=== PATIENT | female | born 1975 | race Caucasian/White ===

== ENCOUNTER 2017-03-13 17:37 | Emergency (ER) | payer MEDICAID, OTHER ==
[2017-03-13 17:37] VITALS: BMI 27.2
[2017-03-13 18:03] VITALS: BP 127/81; PULSE 58; RESP 16; TEMP 98.6; O2SAT 100
--- NOTE | 2017-03-13 19:00 | ED PDOC ---
HPI: Headache Time Seen by Provider: 03/13/17 18:08 Chief Complaint (Nursing): Headache Chief Complaint (Provider): Headache History Per: Patient History/Exam Limitations: no limitations Onset/Duration Of Symptoms: Days (x 3) Current Symptoms Are (Timing): Still Present Additional Complaint(s): Marisa is a 41 y/o female who presents to the ED complaining of gradual onset band-like headache for 3-4 days. Reports associated mild light sensitivity. She states Motrin does provide intermittent relief but headache returns. States she has had the same headache in the past, which usually resolves completely after sleeping or after Motrin. She has never had a headache last this long before. Denies fever, head injury, nausea, vomiting, neck pain or stiffness. PMD: Sundeep Winslow Past Medical History Reviewed: Historical Data, Nursing Documentation, Vital Signs Vital Signs: Last Vital Signs Temp 98.6 F 03/13/17 17:59 Pulse 58 L 03/13/17 17:59 Resp 16 03/13/17 17:59 BP 127/81 03/13/17 17:59 Pulse Ox 100 03/13/17 17:59 - Surgical History Surgical History: (x 1) - Family History Family History: States: Unknown Family Hx - Social History Current smoker - smoking cessation education provided: No Alcohol: None Drugs: Denies - Immunization History Hx Tetanus Toxoid Vaccination: No Hx Influenza Vaccination: No - Home Medications Home Medications: Ambulatory Orders Medication Instructions Recorded Metoclopramide [Reglan] 10 mg PO Q8 PRN #15 tab 03/13/17 Naproxen [Naprosyn] 500 mg PO BID PRN #14 tab 03/13/17 - Allergies Allergies/Adverse Reactions: Allergies Allergy/AdvReac Type Severity Reaction Status Date / Time No Known Allergies Allergy Verified 03/13/17 17:59 Review of Systems ROS Statement: Except As Marked, All Systems Reviewed And Found Negative Constitutional: Negative for: Fever, Other (head injury) Eyes: Positive for: Other (Mild light sensitivity) Gastrointestinal: Negative for: Nausea, Vomiting Musculoskeletal: Negative for: Neck Pain (or stiffness) Neurological: Positive for: Headache Physical Exam - Reviewed Nursing Documentation Reviewed: Yes Vital Signs Reviewed: Yes - Physical Exam Appears: Positive for: Non-toxic, No Acute Distress Head Exam: Positive for: ATRAUMATIC, NORMAL INSPECTION, NORMOCEPHALIC Skin: Positive for: Normal Color, Warm, Dry Eye Exam: Positive for: EOMI, Normal appearance, PERRL ENT: Positive for: Normal ENT Inspection Neck: Positive for: Normal, Painless ROM, Supple Cardiovascular/Chest: Positive for: Regular Rate, Rhythm. Negative for: Murmur Respiratory: Positive for: Normal Breath Sounds. Negative for: Respiratory Distress Gastrointestinal/Abdominal: Positive for: Normal Exam, Soft. Negative for: Tenderness Back: Positive for: Normal Inspection. Negative for: L CVA Tenderness, R CVA Tenderness Extremity: Positive for: Normal ROM. Negative for: Deformity Neurologic/Psych: Positive for: Alert, Oriented, Gait (steady) - Laboratory Results Urine POC: Negative - ECG O2 Sat by Pulse Oximetry: 100 (RA) Pulse Ox Interpretation: Normal - Progress Re-evaluation Time: 19:33 (Pt. reports complete relief of headache. Repeat neuro exam is non-focal.) Condition: Re-examined, Improved Medical Decision Making Medical Decision Making: Time: 18:42 Initial Plan: --Reglan 10 mg PO --Toradol 15 mg IM --Pending reevaluation and disposition Scribe Attestation: Documented by Love Wood, acting as a scribe for Manjit Jo PA-C Provider Scribe Attestation: All medical record entries made by the Scribe were at my direction and personally dictated by me. I have reviewed the chart and agree that the record accurately reflects my personal performance of the history, physical exam, medical decision making, and the department course for this patient. I have also personally directed, reviewed, and agree with the discharge instructions and disposition. Disposition - Clinical Impression Clinical Impression: Acute headache - Patient ED Disposition Is Patient to be Admitted: No - Disposition Referrals: Yamil Shoemaker [Outside] Disposition: Routine/Home Disposition Time: 19:34 Condition: STABLE Prescriptions: Metoclopramide [Reglan] 10 mg PO Q8 PRN #15 tab PRN Reason: nausea or headache Naproxen [Naprosyn] 500 mg PO BID PRN #14 tab PRN Reason: Pain Instructions: Acute Headache (ED) Forms: [facility] (Senegalese) Print Language: CHILEAN
== END 2017-03-13 19:45 | disposition home or self-care (01) ==
LOC: H.ER 17:37
DX: R51 Headache (principal)
CPT/HCPCS: 81025; 96372; 99284; J1885

== ENCOUNTER 2017-04-05 08:57 | Emergency (ER) | payer MEDICAID ==
[2017-04-05 08:58] VITALS: BMI 27.2
[2017-04-05 09:12] VITALS: BP 118/75; PULSE 63; RESP 18; TEMP 97.8; O2SAT 99
[2017-04-05 09:40] LABS: BASO % 1.2 % (0.0-2.0); EOS # 0.1 K/uL (0.0-0.7); EOS % 2.3 % (0.0-4.0); HEMATOCRIT 33.7 % (34.0-47.0); LYMPH # 1.5 K/uL (1.0-4.3); LYMPH % 35.2 % (20.0-40.0); MEAN CELL VOLUME 89.1 fl (81.0-99.0); MEAN CORPUSCULAR HEMOGLOBIN 28.7 pg (27.0-31.0); MEAN CORPUSCULAR HGB CONC 32.2 g/dL (33.0-37.0); MEAN PLATELET VOLUME 8.9 fl (7.2-11.7); MONO # 0.4 K/uL (0.0-0.8); MONO % 10.6 % (0.0-10.0); NEUT # 2.1 K/uL (1.8-7.0); NEUT % 50.7 % (50.0-75.0); RED CELL DISTRIBUTION WIDTH 13.7 % (11.5-14.5); WHITE BLOOD COUNT 4.2 K/uL (4.8-10.8)
[2017-04-05 09:51] LABS: BLOOD UREA NITROGEN 17 mg/dl (7-17); CALCIUM 9.5 mg/dL (8.4-10.2); CARBON DIOXIDE 28 mmol/L (22-30); CHLORIDE 104 mmol/L (98-107); GFR AFRICAN-AMERICAN > 60; GLUCOSE,RANDOM 84 mg/dL (65-105); POTASSIUM 4.3 MMOL/L (3.6-5.0); SODIUM 143 mmol/l (132-148); URIC ACID 3.4 mg/Dl (2.2-7.5)
--- NOTE | 2017-04-05 11:06 | CP.PCM.CON ---
History of Present Illness - History of Present Illness History of Present Illness: Podiatry Consult Note - Dr. Welch 41 year old female with unremarkable PMH seen in ED complaining of left great toe pain. Patient states the pain started approximately 2 days ago, and denies any acute trauma to the area. Patient states she spends long hours standing and walking for work. Patient denies any change in shoe gear or previous injury. Patient reports 8/10 pain to her left great toe and increased sensitivity to touch. Patient denies any treatment prior to arrival. Patient denies N/V/F/D/C/ SOB/calf pain. No other pedal complaints at this time. Review of Systems - Review of Systems All systems: reviewed and no additional remarkable complaints except (as per HPI ) Past Patient History - Past Social History Smoking Status: Never Smoked - PSYCHIATRIC Hx Substance Use: No - SURGICAL HISTORY Hx Section: Yes (x1) - ANESTHESIA Hx Anesthesia: No Meds Home Medications: Home Medication List Medication Instructions Recorded Confirmed Type Naproxen [Naprosyn] 500 mg PO BID PRN #14 tablet 04/05/17 Rx Allergies/Adverse Reactions: Allergies Allergy/AdvReac Type Severity Reaction Status Date / Time No Known Allergies Allergy Verified 03/13/17 17:59 Physical Exam - Constitutional Appears: Well, Non-toxic, No Acute Distress - Extremities Exam Additional comments: VASC: DP and PT pulses palpable 2/4 b/l. CFT <3 seconds to all digits x10. TG wnl. Mild nonpitting edema noted to L hallux. No increase in warmth noted to left hallux. NEURO: Gross sensation intact bilaterally; hyperesthesia to L hallux DERM: No open lesions noted. No separation of L hallucal nail plate noted. No erythema noted. ORTHO: Pain on palpation left hallux. Pain upon ROM left 1st MPJ. No POP 1st met head, 2nd digit, 1st webspace left foot. Muscle strength 5/5 for all plantarflexors, dorsiflexors, inverters, and everters b/l. - Neurological Exam Neurological exam: Alert, Oriented x3 - Psychiatric Exam Psychiatric exam: Normal Affect, Normal Mood Results - Vital Signs Recent Vital Signs: Last Vital Signs Temp 97.8 F 04/05/17 09:08 Pulse 63 04/05/17 09:08 Resp 18 04/05/17 09:08 BP 118/75 04/05/17 09:08 Pulse Ox 99 04/05/17 09:08 - Labs Result Diagrams: 04/05/17 09:35 04/05/17 09:35 Labs: Laboratory Results - last 24 hr 04/05/17 04/05/17 09:35 09:35 WBC 4.2 L RBC 3.79 L Hgb 10.9 L Hct 33.7 L MCV 89.1 MCH 28.7 MCHC 32.2 L RDW 13.7 Plt Count 238 MPV 8.9 Neut % (Auto) 50.7 Lymph % (Auto) 35.2 Teller % (Auto) 10.6 H Eos % (Auto) 2.3 Baso % (Auto) 1.2 Neut # 2.1 Lymph # 1.5 Teller # 0.4 Eos # 0.1 Baso # 0.0 Sodium 143 Potassium 4.3 Chloride 104 Carbon Dioxide 28 Anion Gap 15 BUN 17 Creatinine 0.7 Est GFR ( Amer) > 60 Est GFR (Non-Af Amer) > 60 Random Glucose 84 Uric Acid 3.4 Calcium 9.5 Assessment & Plan - Assessment and Plan (Free Text) Assessment: 41 year old female unremarkable PMH with painful left hallux likely 2/2 sprain Plan: Patient seen and evaluated in ED Discussed with attending Dr. Welch Chart, labs, vitals reviewed = afebrile, WBC decreased @ 4.2, uric acid wnl 3.4 Left foot XR reviewed: negative for acute fracture Surgical shoe dispensed. WBAT to LLE in surgical shoe to prevent 1st MPJ ROM Recommend NSAIDs Recommend RICE Stable from podiatry standpoint Patient is to follow up with Dr. Welch at [facility] podiatry clinic Thank you for this consult, please reconsult podiatry again as needed
--- NOTE | 2017-04-05 11:17 | ED PDOC ---
Lower Extremity Pain/Injury Time Seen by Provider: 04/05/17 09:07 Chief Complaint (Nursing): Lower Extremity Problem/Injury Chief Complaint (Provider): Left great toe pain History Per: Patient History/Exam Limitations: no limitations Onset/Duration Of Symptoms: Days (x2) Current Symptoms Are (Timing): Still Present Additional Complaint(s): Marisa Hoffman is a 41 year old female presenting to the ED for an evaluation of worsening pain to her great left toe occurring for 2 days prior to arrival. She denies any trauma, nail trauma, injury, fever, thigh, foot, or ankle pain. PMD: Donna Alarcon MD Past Medical History Reviewed: Historical Data, Nursing Documentation, Vital Signs Vital Signs: Last Vital Signs Temp 97.8 F 04/05/17 09:08 Pulse 63 04/05/17 09:08 Resp 18 04/05/17 09:08 BP 118/75 04/05/17 09:08 Pulse Ox 99 04/05/17 09:08 - Medical History PMH: No Chronic Diseases - Surgical History Surgical History: (x 1) - Family History Family History: States: Unknown Family Hx - Social History Current smoker - smoking cessation education provided: No Ex-Smoker (has not smoked in the last 12 months): No Alcohol: None Drugs: Denies - Immunization History Hx Tetanus Toxoid Vaccination: No Hx Influenza Vaccination: No - Home Medications Home Medications: Ambulatory Orders Medication Instructions Recorded Metoclopramide [Reglan] 10 mg PO Q8 PRN #15 tab 03/13/17 Naproxen [Naprosyn] 500 mg PO BID PRN #14 tab 03/13/17 Naproxen [Naprosyn] 500 mg PO BID PRN #14 tablet 04/05/17 - Allergies Allergies/Adverse Reactions: Allergies Allergy/AdvReac Type Severity Reaction Status Date / Time No Known Allergies Allergy Verified 03/13/17 17:59 Review of Systems ROS Statement: Except As Marked, All Systems Reviewed And Found Negative Constitutional: Negative for: Fever, Other (no trauma) Musculoskeletal: Positive for: Foot Pain (pain to great left toe ) Physical Exam - Reviewed Nursing Documentation Reviewed: Yes Vital Signs Reviewed: Yes - Physical Exam Appears: Positive for: Non-toxic, No Acute Distress Head Exam: Positive for: ATRAUMATIC, NORMOCEPHALIC Extremity: Positive for: Normal ROM (to left ankle ), Tenderness (left great toe : tender diffusely with pain on range of motion), Swelling (minimal edema to left great toe ). Negative for: Other (no erythema to left great toe. Digits 2- 5 are unremarkable and nontendor ) Neurologic/Psych: Positive for: Alert, Oriented - Laboratory Results Result Diagrams: 04/05/17 09:35 04/05/17 09:35 - ECG O2 Sat by Pulse Oximetry: 99 (RA) Pulse Ox Interpretation: Normal Medical Decision Making Medical Decision Making: Time: 09:07 Impression: Left great toe pain Plan: * BMP * Uric Acid * CBC (with differential) * Toradol 30 mg IV * Tylenol 650 mg PO * [RAD] Foot Left 3 Views Routine * Reevaluation XRay: Unremarkable upon my evaluation Blood work: White count and uric acid normal. Podiatry consult was obtained. Awaiting disposition. Scribe Attestation: Documented by Susan Samson, acting as a scribe for Yao Garland DO. Provider Scribe Attestation: All medical record entries made by the Scribe were at my direction and personally dictated by me. I have reviewed the chart and agree that the record accurately reflects my personal performance of the history, physical exam, medical decision making, and the department course for this patient. I have also personally directed, reviewed, and agree with the discharge instructions and disposition. Disposition - Clinical Impression Clinical Impression: Toe pain - Patient ED Disposition Is Patient to be Admitted: No Counseled Patient/Family Regarding: Studies Performed, Diagnosis, Need For Followup - Disposition Referrals: Catalina Welch DPM [Staff Provider] - Disposition: Routine/Home Disposition Time: 11:01 Condition: STABLE Additional Instructions: Followup with records management specialist as directed. Continue medications as prescribed. Return to ER for any worse or new symptoms. Prescriptions: Naproxen [Naprosyn] 500 mg PO BID PRN #14 tablet PRN Reason: Pain, Moderate (4-7) Instructions: Arthralgia (ED) Forms: [facility] (Armenian)
--- NOTE | 2017-04-05 19:50 | RAD ---
PROCEDURE: Left Foot Radiographs. HISTORY: L great toe pain, states no trauma COMPARISON: None. FINDINGS: BONES: Normal. No fracture. JOINTS: Normal. SOFT TISSUES: Normal. OTHER FINDINGS: None. IMPRESSION: Unremarkable left foot radiographs.
== END 2017-04-05 11:30 | disposition home or self-care (01) ==
LOC: H.ER 08:57
DX: M79.675 Pain in left toe(s) (principal)
CPT/HCPCS: 73630; 80048; 81025; 84550; 85025; 96374; 99283; J1885

== ENCOUNTER 2017-12-05 17:05 | Emergency (ER) | payer MEDICAID ==
[2017-12-05 17:05] VITALS: BMI 27.2
[2017-12-05 17:14] VITALS: BP 113/72; PULSE 72; RESP 16; TEMP 98.5; O2SAT 100
--- NOTE | 2017-12-05 17:45 | ED PDOC ---
Upper Extremity Pain/Injury Time Seen by Provider: 12/05/17 17:22 Chief Complaint (Nursing): Abnormal Skin Integrity Chief Complaint (Provider): Left thumb injury History Per: Patient History/Exam Limitations: no limitations Onset/Duration Of Symptoms: Hrs (today) Current Symptoms Are (Timing): Still Present Quality: "Pain" Additional Complaint(s): Marisa Hoffman is a 42 year old female, with no significant past medical history, who presents to the emergency department complaining of a left thumb injury onset today. Patient reports her finger got caught while closing the car's door . She did not take any pain medications. She denies any other injuries or other medical complaints. Patient is up to date with tetanus shot. PMD: Sundeep Winslow Past Medical History Reviewed: Historical Data, Nursing Documentation, Vital Signs Vital Signs: Last Vital Signs Temp 98.5 F 12/05/17 17:13 Pulse 72 12/05/17 17:13 Resp 16 12/05/17 17:13 BP 113/72 12/05/17 17:13 Pulse Ox 100 12/05/17 17:13 - Medical History PMH: No Chronic Diseases - Surgical History Surgical History: (x 1) - Family History Family History: States: Unknown Family Hx - Immunization History Hx Tetanus Toxoid Vaccination: No Hx Influenza Vaccination: No - Home Medications Home Medications: Ambulatory Orders Medication Instructions Recorded Metoclopramide [Reglan] 10 mg PO Q8 PRN #15 tab 03/13/17 Naproxen [Naprosyn] 500 mg PO BID PRN #14 tab 03/13/17 Naproxen [Naprosyn] 500 mg PO BID PRN #14 tablet 04/05/17 - Allergies Allergies/Adverse Reactions: Allergies Allergy/AdvReac Type Severity Reaction Status Date / Time No Known Allergies Allergy Verified 03/13/17 17:59 Review of Systems ROS Statement: Except As Marked, All Systems Reviewed And Found Negative Musculoskeletal: Positive for: Hand Pain (left thumb) Physical Exam - Reviewed Nursing Documentation Reviewed: Yes Vital Signs Reviewed: Yes - Physical Exam Appears: Positive for: Non-toxic, No Acute Distress Head Exam: Positive for: ATRAUMATIC, NORMOCEPHALIC Skin: Positive for: Normal Color, Warm, Dry Eye Exam: Positive for: Normal appearance Neck: Positive for: Painless ROM Respiratory: Negative for: Respiratory Distress Extremity: Positive for: Normal ROM (upper and lower extremities), Other ( Superficial laceration to posterior base of the nail. No active bleeding). Negative for: Deformity, Swelling Neurologic/Psych: Positive for: Alert, Oriented. Negative for: Motor/Sensory Deficits - ECG O2 Sat by Pulse Oximetry: 100 (RA) Pulse Ox Interpretation: Normal Medical Decision Making Medical Decision Making: Time: 17:22 Initial Impression: Left thumb injury Initial Plan: --Motrin tab 600 mg PO --Hand left thumb [RAD] X-ray without acute fracture or dislocation Wound irrigated, antibiotic ointment applied with bandage. Scribe Attestation: Documented by Alo Pool, acting as a scribe for Tiarra Jorge PA-C Provider Scribe Attestation: All medical record entries made by the Scribe were at my direction and personally dictated by me. I have reviewed the chart and agree that the record accurately reflects my personal performance of the history, physical exam, medical decision making, and the department course for this patient. I have also personally directed, reviewed, and agree with the discharge instructions and disposition. Disposition - Clinical Impression Clinical Impression: Finger injury - Disposition Disposition: Routine/Home Disposition Time: 17:53 Condition: STABLE Instructions: Wound Care (DC) Forms: [employer] (Kyrgyz)
--- NOTE | 2017-12-05 18:49 | RAD ---
PROCEDURE: Left Thumb radiographs. HISTORY: thumb injury COMPARISON: None. TECHNIQUE: AP radiograph of the left hand, as well as spot oblique and lateral images of thumb were obtained. FINDINGS: LEFT THUMB: Normal left thumb, without acute fracture or focal lesion. Remainder of the left hand (as seen on the AP view) grossly unremarkable. JOINTS: Normal. SOFT TISSUES: Normal. OTHER FINDINGS: None. IMPRESSION: No acute fracture or dislocation.
== END 2017-12-05 18:12 | disposition home or self-care (01) ==
LOC: H.ER 17:05
DX: S69.92XA Unspecified injury of left wrist, hand and finger(s), initial encounter (principal); W22.8XXA Striking against or struck by other objects, initial encounter; Y92.89 Other specified places as the place of occurrence of the external cause

== ENCOUNTER 2018-08-13 08:57 | Emergency (ER) | payer MEDICAID ==
[2018-08-13 09:00] VITALS: BMI 28.3
--- NOTE | 2018-08-13 10:45 | ED PDOC ---
HPI: CCC, URI, Sore Throat Time Seen by Provider: 08/13/18 09:15 Chief Complaint (Nursing): ENT Problem Chief Complaint (Provider): ENT Problem History Per: Patient History/Exam Limitations: no limitations Onset/Duration Of Symptoms: Days (x1) Current Symptoms Are (Timing): Still Present Location Of Pain: Throat Associated Symptoms: denies: Vomiting Additional Complaint(s): 42 year old female with no past medical history who is presenting to the ED for evaluation of left sided throat pain onset last night. Patient states that she can still swallow but it is painful and complains of a subjective fever. She admits that she took Tylenol at home with partial relief of symptoms. Patient denies any vomiting or any other medical complaints. PMD: Vipul Alarcon Past Medical History Reviewed: Historical Data, Nursing Documentation, Vital Signs Vital Signs: Last Vital Signs Temp 98.7 F 08/13/18 09:00 Pulse 78 08/13/18 09:00 Resp 17 08/13/18 09:00 BP 118/71 08/13/18 09:00 Pulse Ox 100 08/13/18 09:00 - Medical History PMH: No Chronic Diseases Denies: Chronic Kidney Disease - Surgical History Surgical History: (x 1) - Family History Family History: States: Unknown Family Hx - Social History Current smoker - smoking cessation education provided: No Alcohol: None Drugs: Denies - Immunization History Hx Tetanus Toxoid Vaccination: No Hx Influenza Vaccination: No - Home Medications Home Medications: Ambulatory Orders Medication Instructions Recorded Metoclopramide [Reglan] 10 mg PO Q8 PRN #15 tab 03/13/17 RX: Naproxen [Naprosyn] 500 mg PO BID PRN #14 tab 03/13/17 Naproxen [Naprosyn] 500 mg PO BID PRN #14 tablet 04/05/17 RX: Amoxicillin 500 mg PO BID #20 tablet 08/13/18 - Allergies Allergies/Adverse Reactions: Allergies Allergy/AdvReac Type Severity Reaction Status Date / Time No Known Allergies Allergy Verified 03/13/17 17:59 Physical Exam - Reviewed Nursing Documentation Reviewed: Yes Vital Signs Reviewed: Yes - Physical Exam Appears: Positive for: Non-toxic, No Acute Distress Head Exam: Positive for: ATRAUMATIC, NORMAL INSPECTION, NORMOCEPHALIC Skin: Positive for: Normal Color, Warm, DRY Eye Exam: Positive for: Normal appearance ENT: Positive for: Other (Left tonsil swollen: with erythema and mild cervical lymphadenopathy ). Negative for: Tonsillar Exudate Cardiovascular/Chest: Positive for: Regular Rate, Rhythm. Negative for: Murmur Respiratory: Positive for: Normal Breath Sounds. Negative for: Respiratory Distress Gastrointestinal/Abdominal: Positive for: Normal Exam, Soft. Negative for: Tenderness Neurologic/Psych: Positive for: Alert, Oriented. Negative for: Motor/Sensory Deficits - ECG O2 Sat by Pulse Oximetry: 100 (RA) Pulse Ox Interpretation: Normal Medical Decision Making Medical Decision Making: Time: 10:13 Plan: --Motrin 600 mg PO --Rapid Strep 13:10 patient is positive for strep. pt feels improved. She will be discharged home with antibiotics and will be given first dose in the ED. Scribe Attestation: Documented by Maida Cartagena, acting as a scribe for Joe Pickard MD. Provider Scribe Attestation: All medical record entries made by the Scribe were at my direction and personally dictated by me. I have reviewed the chart and agree that the record accurately reflects my personal performance of the history, physical exam, medical decision making, and the department course for this patient. I have also personally directed, reviewed, and agree with the discharge instructions and disposition. Disposition - Clinical Impression Clinical Impression: Strep pharyngitis - Patient ED Disposition Is Patient to be Admitted: No Counseled Patient/Family Regarding: Studies Performed, Diagnosis, Need For Followup - Disposition Disposition: Routine/Home Disposition Time: 13:10 Condition: IMPROVED Additional Instructions: follow up with your primary doctor in 1-2 days return to the ED with any worsening or concerning symptoms Prescriptions: RX: Amoxicillin 500 mg PO BID #20 tablet Instructions: Strep Throat (DC) Forms: [employer] (Angolan)
[2018-08-13 13:21] VITALS: BP 110/70; PULSE 76; RESP 20; TEMP 98
[2018-08-14 18:33] VITALS: O2SAT 100
== END 2018-08-13 13:21 | disposition home or self-care (01) ==
LOC: H.ER 08:57
DX: J02.0 Streptococcal pharyngitis (principal)